=== PATIENT | female | born 1970 | race Caucasian/White ===

== ENCOUNTER 2017-05-03 20:04 | Emergency (ER) | payer BC ==
[~2017-05-03] VITALS: Ht 167.6 cm; Wt 104.3 kg
--- NOTE | 2017-05-03 20:51 | PHYS DOC ---
Past Medical History Past Medical History: High Cholesterol, Hypertension Past Surgical History: Tubal ligation Additional Past Surgical Histo: ovary removal, bladder lift Alcohol Use: None Drug Use: None Adult General Chief Complaint Chief Complaint: HYPERTENSION HPI HPI Patient is a 46 year old female who comes from home to the emergency department with the concern that her blood pressure was elevated at about 220/ 120. Patient states that she was just started yesterday on antihypertensives by her PCP, Yaz Tan, after her blood pressure had been running high. She thinks yesterday in the office it was 159/95. She took her first dose of lisinopril and cholesterol medicine last night at about 7 PM, today her blood pressure was okay when she checked it this morning. After work, she fixed dinner and ate something for dinner and then took her lisinopril and cholesterol medicine. Shortly after taking the medicines she began to not feel well. Her mouth felt dry. She felt like her throat was closing and she was having trouble swallowing. She had nausea. She was lightheaded. Her left arm had a band like tightness and pain from her elbow distally. She went and sat down on the couch, she checked her blood pressure and it was elevated. Her son checked his blood pressure with the same cuff and it was normal. Her blood pressure remained elevated so she came to the hospital. The patient did not have chest pain. The patient denies any swelling of her lips or tongue. She doesn't believe she's ever had an episode like this before. Review of Systems Review of Systems Constitutional: Denies fever or chills [] Eyes: Denies change in visual acuity, redness, or eye pain [] HENT: Denies nasal congestion or sore throat [] Respiratory: Denies cough or shortness of breath [] Cardiovascular: Denies chest pain GI: Nausea without vomiting : Denies dysuria or hematuria [] Musculoskeletal: Denies back pain or joint pain [] Integument: Denies rash or skin lesions [] Neurologic: Denies headache, focal weakness or sensory changes [] Allergies Allergies Allergies Coded Allergies Type Severity Reaction Last Updated Verified No Known Drug Allergies 05/03/17 No Physical Exam Physical Exam Constitutional: Well developed, well nourished, no acute distress, non-toxic appearance. Talking on her phone when I entered the room, alert, mentating normally. HENT: Normocephalic, atraumatic, bilateral external ears normal, nose normal. [] Eyes: conjunctiva normal, no discharge. [] Neck: Normal range of motion, no stridor. [] Cardiovascular:Heart rate regular rhythm, no murmur [] Lungs & Thorax: Bilateral breath sounds clear to auscultation [] Skin: Warm, dry, no erythema, no rash. [] Extremities: No tenderness, no cyanosis, no clubbing, ROM intact, no edema. [] Neurologic: Alert and oriented X 3, normal motor function, normal sensory function, no focal deficits noted. [] Current Patient Data Vital Signs Vital Signs Date Time Temp Pulse Resp B/P (MAP) Pulse Ox O2 Delivery O2 Flow Rate FiO2 05/03/17 21:03 70 16 161/77 (105) 100 Room Air 05/03/17 20:10 98.1 98.1 EKG EKG 12-lead EKG read by me. Sinus rhythm. Heart rate 72. There are no acute ST or T wave changes indicative of ischemia or infarction. No STEMI. 2015 [] Radiology/Procedures Radiology/Procedures [] Course & Med Decision Making Course & Med Decision Making Pertinent Labs and Imaging studies reviewed. (See chart for details) Initial blood pressure reading by the automated cuff was 219/108. I requested that ED nursing staff repeat her blood pressure manually and it was 158/82. Patient remained stable in the emergency department and felt better. I discussed with the patient that I don't know what happened with her blood pressure readings in her symptoms but I do not find any indication of anything serious. I encouraged her to continue taking her blood pressure and cholesterol medicine as prescribed and follow up with her PCP. She remained stable with no concerning signs or symptoms while in the emergency department. [] Dragon Disclaimer Dragon Disclaimer This electronic medical record was generated, in whole or in part, using a voice recognition dictation system. Departure Departure Impression: Primary Impression: Elevated blood pressure reading Disposition: HOME, SELF-CARE Condition: IMPROVED Patient Instructions: Hypertension, [id number] Additional Instructions: Be sure you take your lisinopril at the same time every day. Take cholesterol medicine at bedtime. Continue to work on losing weight, low salt diet. Continue to keep a log of your blood pressure readings for your primary care provider. Lisinopril may take a week to lower your blood pressure is much as it will, follow-up with your primary care. DUSTIN MALDONADO MD May 03, 2017 20:51
[2017-05-03 21:03] VITALS: BP 161/77
--- NOTE | 2017-05-04 07:22 | EKG ---
[facility] [address] [place] [address] Test Date: 2017-05-03 Test Time: 20:15:22 Pat Name: JAKE HUGHES Department: Room: Gender: F [employer]: : 1970 Requested By: DUSTIN MALDONADO Order Number: [id number] Reading MD: Nadine Wilks Measurements Intervals [place] Rate: 72 P: 27 [place]: 162 QRS: 59 QRSD: 92 T: 80 QT: 380 QTc: 422 Interpretive Statements SINUS RHYTHM NORMAL ECG RI6.01 No previous ECG available for comparison Electronically Signed On 05-06-2017 13:59:14 CDT by Nadine Wilks
== END 2017-05-03 21:03 | disposition home or self-care (01) ==
LOC: ER 20:04
DX: I10 Essential (primary) hypertension (principal); R42 Dizziness and giddiness; R11.0 Nausea; R13.10 Dysphagia, unspecified; E78.00 Pure hypercholesterolemia, unspecified; Z98.51 Tubal ligation status
CPT/HCPCS: 93005; 99284-25

== ENCOUNTER 2017-07-14 10:46 | Emergency (ER) | payer BC ==
--- NOTE | 2017-07-14 11:21 | PHYS DOC ---
Past Medical History Past Medical History: High Cholesterol, Hypertension Past Surgical History: Tubal ligation Additional Past Surgical Histo: ovary removal, bladder lift,BOTH KNEES Alcohol Use: None Drug Use: None Adult General Chief Complaint Chief Complaint: HEADACHE HPI HPI Patient is a 47 year old female who presents with headache. She states her headache started Monday came on gradually it's in the frontal area and goes to the back of her skull and is a constant pressure sensation. She states she's felt nauseated but not vomited. She denies any nuchal rigidity or fevers. She does state it feels like sinus pressure that's causing her pain. She states she's never had a headache like this before. She was seen by her primary care physician this morning and stated since her blood pressure was 217/ 109 she was sent to the ER. Review of Systems Review of Systems Constitutional: Denies fever or chills [] Eyes: Denies change in visual acuity, redness, or eye pain [] HENT: Denies nasal congestion or sore throat [] Respiratory: Denies cough or shortness of breath [] Cardiovascular: No additional information not addressed in HPI [] GI: Denies abdominal pain, nausea, vomiting, bloody stools or diarrhea [] : Denies dysuria or hematuria [] Musculoskeletal: Denies back pain or joint pain [] Integument: Denies rash or skin lesions [] Neurologic: Denies headache, focal weakness or sensory changes [] Endocrine: Denies polyuria or polydipsia [] Current Medications Current Medications Current Medications Medications (Trade) Dose Ordered Sig/Santos Start Time Stop Time Status Last Admin Dose Admin Diphenhydramine HCl (Benadryl) 25 mg 1X ONCE 07/14/17 12:00 07/14/17 12:01 DC 07/14/17 12:35 25 MG Promethazine HCl 12.5 mg/Sodium Chloride 50.5 ml @ 151.5 mls/ hr PRN Q6HRS PRN 07/14/17 12:00 07/14/17 12:34 151.5 MLS/HR Allergies Allergies Allergies Coded Allergies Type Severity Reaction Last Updated Verified No Known Drug Allergies 05/03/17 No Physical Exam Physical Exam Constitutional: Well developed, well nourished, no acute distress, non-toxic appearance. [] HENT: Normocephalic, atraumatic, bilateral external ears normal, oropharynx moist, no oral exudates, nose normal. [] Eyes: PERRLA, EOMI, conjunctiva normal, no discharge. [] Neck: Normal range of motion, no tenderness, supple, no stridor. [] Cardiovascular:Heart rate regular rhythm, no murmur [] Lungs & Thorax: Bilateral breath sounds clear to auscultation [] Abdomen: Bowel sounds normal, soft, no tenderness, no masses, no pulsatile masses. [] Skin: Warm, dry, no erythema, no rash. [] Back: No tenderness, no CVA tenderness. [] Extremities: No tenderness, no cyanosis, no clubbing, ROM intact, no edema. [] Neurologic: Alert and oriented X 3, normal motor function, normal sensory function, no focal deficits noted. [] Psychologic: Affect normal, judgement normal, mood normal. [] Current Patient Data Vital Signs Vital Signs Date Time Temp Pulse Resp B/P (MAP) Pulse Ox O2 Delivery O2 Flow Rate FiO2 07/14/17 12:51 55 123/58 (79) 97 Room Air 07/14/17 10:53 98.2 18 98.2 Lab Values Laboratory Tests Test 07/14/17 11:00 07/14/17 12:10 White Blood Count 9.0 x10^3/uL (4.0-11.0) Red Blood Count 4.58 x10^6/uL (3.50-5.40) Hemoglobin 13.8 g/dL (12.0-15.5) Hematocrit 40.2 % (36.0-47.0) Mean Corpuscular Volume 88 fL (79-100) Mean Corpuscular Hemoglobin 30 pg (25-35) Mean Corpuscular Hemoglobin Concent 34 g/dL (31-37) Red Cell Distribution Width 12.6 % (11.5-14.5) Platelet Count 311 x10^3/uL (140-400) Neutrophils (%) (Auto) 56 % (31-73) Lymphocytes (%) (Auto) 36 % (24-48) Monocytes (%) (Auto) 6 % (0-9) Eosinophils (%) (Auto) 2 % (0-3) Basophils (%) (Auto) 1 % (0-3) Neutrophils # (Auto) 5.0 x10^3uL (1.8-7.7) Lymphocytes # (Auto) 3.2 x10^3/uL (1.0-4.8) Monocytes # (Auto) 0.5 x10^3/uL (0.0-1.1) Eosinophils # (Auto) 0.2 x10^3/uL (0.0-0.7) Basophils # (Auto) 0.1 x10^3/uL (0.0-0.2) Sodium Level 141 mmol/L (136-145) Potassium Level 3.6 mmol/L (3.5-5.1) Chloride Level 102 mmol/L (98-107) Carbon Dioxide Level 29 mmol/L (21-32) Anion Gap 10 (6-14) Blood Urea Nitrogen 9 mg/dL (7-20) Creatinine 0.7 mg/dL (0.6-1.0) Estimated GFR (Cockcroft-Gault) 89.7 Glucose Level 99 mg/dL (70-99) Calcium Level 9.2 mg/dL (8.5-10.1) Magnesium Level 2.3 mg/dL (1.8-2.4) Total Bilirubin 0.4 mg/dL (0.2-1.0) Direct Bilirubin 0.1 mg/dL (0.0-0.2) Aspartate Amino Transferase (AST) 16 U/L (15-37) Alanine Aminotransferase (ALT) 28 U/L (14-59) Alkaline Phosphatase 79 U/L (46-116) Creatine Kinase 105 U/L (26-192) Creatine Kinase MB (Mass) 0.8 ng/mL (0.0-3.6) Creatine Kinase MB Relative Index 0.8 % (0-4) Troponin I Quantitative < 0.017 ng/mL (0.000-0.055) JZ-Xdt-C-Type Natriuretic Peptide 61 pg/mL (0-124) Total Protein 7.8 g/dL (6.4-8.2) Albumin 4.2 g/dL (3.4-5.0) Thyroid Stimulating Hormone (TSH) 1.624 uIU/mL (0.358-3.74) Urine Collection Type Unknown Urine Color Yellow Urine Clarity Clear Urine pH 7.0 Urine Specific Hay <=1.005 Urine Protein Negative mg/dL (NEG-TRACE) Urine Glucose (UA) Negative mg/dL (NEG) Urine Ketones (Stick) Negative mg/dL (NEG) Urine Blood Trace (NEG) Urine Nitrite Negative (NEG) Urine Bilirubin Negative (NEG) Urine Urobilinogen Dipstick 0.2 mg/dL (0.2 mg/dL) Urine Leukocyte Esterase Negative (NEG) Urine RBC 0 /HPF (0-2) Urine WBC Occ /HPF (0-4) Urine Squamous Epithelial Cells Many /LPF Urine Bacteria Few /HPF (0-FEW) Urine Opiates Screen Neg (NEG) Urine Methadone Screen Neg (NEG) Urine Barbiturates Neg (NEG) Urine Phencyclidine Screen Neg (NEG) Urine Amphetamine/Methamphetamine Neg (NEG) Urine Benzodiazepines Screen Neg (NEG) Urine Cocaine Screen Neg (NEG) Urine Cannabinoids Screen Neg (NEG) Urine Ethyl Alcohol Neg (NEG) Laboratory Tests 07/14/17 11:00 Laboratory Tests 07/14/17 11:00 EKG EKG EKG shows sinus rhythm 3-[address]ations or T-wave inversions, normal axis, QTC 414 ms, as interpreted by me. Radiology/Procedures Radiology/Procedures [facility] [address] [place] [address] IMAGING REPORT Signed PATIENT: JAKE HUGHES ACCOUNT: [id number] : 1970 LOCATION: ER AGE: 47 SEX: F EXAM STATUS: REG ER ORD. PHYSICIAN: CRISTIAN PIERRE MD REASON: new headache PROCEDURE: CT HEAD WO CONTRAST CT head without contrast 07/14/2017 at 1217 hours Indication: New headache. Comparison: None available Technique: Multiple axial CT images of the head were obtained without intravenous contrast. Findings: Ventricles, sulci and basal cisterns are normal for patient's age. There are is no loss of the marin-white matter differentiation. There is no mass, mass effect or midline shift. There is no hydrocephalus. There is no acute intracranial hemorrhage. Visualized portions of the orbits are normal. Paranasal sinuses and mastoid air cells are well aerated. There is a 28 x 21 mm probably calcified subcutaneous mass in the occipital scalp. There is a similar-appearing subcutaneous nodule which is calcified measuring 7 mm in the left parietal scalp. Impression: 1. No acute intracranial hemorrhage. 2. Partly calcified subcutaneous nodule measuring up to 28 x 21 mm in the occipital scalp appear to represent benign etiology. PQRS Compliance Statement: One or more of the following individualized dose reduction techniques were utilized for this examination: 1. Automated exposure control 2. Adjustment of the mA and/or kV according to patient size 3. Use of iterative reconstruction technique DICTATED and SIGNED BY: KRYSTIAN RODRIGUES MD DATE: 07/14/17 1226 CC: CRISTIAN PIERRE MD; MEHDI NOLAN ~ [facility] [address] [place] [address] IMAGING REPORT Signed PATIENT: JAKE HUGHES ACCOUNT: [id number] : 1970 LOCATION: ER AGE: 47 SEX: F EXAM STATUS: REG ER ORD. PHYSICIAN: CRISTIAN PIERRE MD REASON: htn PROCEDURE: PORTABLE CHEST 1V Chest radiograph 07/14/2017 1:21 PM Indication: Hypertension, headache Comparison: None available Technique: Single portable upright frontal view of the chest is provided. Findings: Cardiomediastinal silhouette is enlarged within normal limits. No pleural effusions, pulmonary vascular congestion or pneumothorax. The lungs are clear. Osseous structures are normal. Impression: Enlarged cardiomediastinal silhouette without acute infiltrate DICTATED and SIGNED BY: KRYSTIAN RODRIGUES MD DATE: 07/14/17 1234 CC: CRISTIAN PIERRE MD; MEHDI NOLAN ~ Impressions: Headache hypertension Course & Med Decision Making Course & Med Decision Making Pertinent Labs and Imaging studies reviewed. (See chart for details) Her headache improved with Phenergan and Benadryl. Her blood pressure improved to systolic 118. She's being discharged home. She is to take Benadryl and Phenergan as needed. She is also being discharged with Augmentin 875 twice a day for the next 10 days for sinus/left sided otitis. She can also take Anna or Claritin [id number] if she chooses not to take Benadryl. Return precautions given for worsening headache, fevers, neck stiffness or other concerns return back to ER. She is to follow-up with her primary care physician regarding her headache and elevated blood pressure. I suspect her blood pressure is normal now secondary to pain control. Dragon Disclaimer Dragon Disclaimer This electronic medical record was generated, in whole or in part, using a voice recognition dictation system. Departure Departure Impression: Primary Impression: Otitis media Disposition: 01 HOME, SELF-CARE Condition: STABLE Referrals: UNKNOWN PCP NAME (PCP) Patient Instructions: Otitis Media, Adult, [id number] Additional Instructions: Your CAT scan did not show any acute abnormality's. You being discharged home. Your headache could be secondary to an ear infection on the left side. Your being discharged with antibiotics for the next 10 days. You can take Phenergan and Benadryl as directed for your symptoms. You can purchase Benadryl over-the- counter. He is follow the instructions on the bottle. If Benadryl makes her too sleepy and always substituted and go with Anna or Claritin that you can purchase [id number]. Return the ER if you have severe pain, fevers, neck stiffness, or other concerns. You should follow-up to primary care physician within the next week regarding your blood pressure. Scripts Promethazine Hcl (PROMETHAZINE HCL) 25 Mg Tablet 1 TAB PO PRN Q6HRS Y for NAUSEA, #20 TAB Prov: CRISTIAN PIERRE MD 07/14/17 Amoxicillin/Potassium Clav (AUGMENTIN 875-125 TABLET) 1 Each Tablet 1 TAB PO BID, #20 TAB Prov: CRISTIAN PIERRE MD 07/14/17 Problem Qualifiers Primary Impression: Otitis media Otitis media type: suppurative Chronicity: acute Laterality: left Recurrence: not specified as recurrent Spontaneous tympanic membrane rupture: without spontaneous rupture Qualified Codes: H66.002 - Acute suppurative otitis media without spontaneous rupture of ear drum, left ear CRISTIAN PIERRE MD Jul 14, 2017 11:21
[2017-07-14 11:32] LABS: BASO # 0.1 x10^3/uL (0.0-0.2); BASO % 1 % (0-3); EOS % 2 % (0-3); HEMATOCRIT 40.2 % (36.0-47.0); HEMOGLOBIN 13.8 g/dL (12.0-15.5); LYMPH # 3.2 x10^3/uL (1.0-4.8); LYMPH % 36 % (24-48); MEAN CORPUSCULAR HEMOGLOBIN 30 pg (25-35); MEAN CORPUSCULAR HGB CONC 34 g/dL (31-37); MEAN CORPUSCULAR VOLUME 88 fL (79-100); MONO % 6 % (0-9); NEUT % 56 % (31-73); PLATELET COUNT 311 x10^3/uL (140-400); RED BLOOD COUNT 4.58 x10^6/uL (3.50-5.40); RED CELL DISTRIBUTION WIDTH 12.6 % (11.5-14.5)
[2017-07-14 11:54] LABS: CALCIUM 9.2 mg/dL (8.5-10.1); CREATININE 0.7 mg/dL (0.6-1.0); GFR 89.7; POTASSIUM 3.6 mmol/L (3.5-5.1)
--- NOTE | 2017-07-14 11:54 | EKG ---
[facility] [address] [place] [address] Test Date: 2017-07-14 Test Time: 11:31:33 Pat Name: JAKE HUGHES Department: Room: Gender: F [employer]: : 1970 Requested By: CRISTIAN PIERRE Order Number: [id number] Reading MD: Darryl Sams Measurements Intervals [place] Rate: 60 P: 24 [place]: 158 QRS: 47 QRSD: 88 T: 47 QT: 414 QTc: 414 Interpretive Statements SINUS RHYTHM Electronically Signed On 07-14-2017 15:38:40 CDT by Darryl Sams
[2017-07-14] MEDS ORDERED: diphenhydrAMINE 50 MG/ML VIAL IVP ONE (12:00)
[2017-07-14] MEDS ORDERED: PROMETHAZINE 12.5 MG in IV NORMAL SALINE 50ML 50 ML IV PRN (12:00)
[2017-07-14 12:01] LABS: ALBUMIN 4.2 g/dL (3.4-5.0); DIRECT BILIRUBIN 0.1 mg/dL (0.0-0.2); MAGNESIUM 2.3 mg/dL (1.8-2.4); TOTAL BILIRUBIN 0.4 mg/dL (0.2-1.0); TOTAL PROTEIN 7.8 g/dL (6.4-8.2)
[2017-07-14 12:07] LABS: CKMB MASS 0.8 ng/mL (0.0-3.6)
[2017-07-14 12:32] LABS: BARBITURATES NEG (NEG); BENZODIAZEPINES NEG (NEG); CANNABINOIDS NEG (NEG); COCAINE NEG (NEG); METHADONE NEG (NEG); OPIATES NEG (NEG); PHENCYCLIDINE NEG (NEG)
--- NOTE | 2017-07-14 12:33 | RAD ---
CT head without contrast 07/14/2017 at 1217 hours Indication: New headache. Comparison: None available Technique: Multiple axial CT images of the head were obtained without intravenous contrast. Findings: Ventricles, sulci and basal cisterns are normal for patient's age. There are is no loss of the marin-white matter differentiation. There is no mass, mass effect or midline shift. There is no hydrocephalus. There is no acute intracranial hemorrhage. Visualized portions of the orbits are normal. Paranasal sinuses and mastoid air cells are well aerated. There is a 28 x 21 mm probably calcified subcutaneous mass in the occipital scalp. There is a similar-appearing subcutaneous nodule which is calcified measuring 7 mm in the left parietal scalp. Impression: 1. No acute intracranial hemorrhage. 2. Partly calcified subcutaneous nodule measuring up to 28 x 21 mm in the occipital scalp appear to represent benign etiology. PQRS Compliance Statement: One or more of the following individualized dose reduction techniques were utilized for this examination: 1. Automated exposure control 2. Adjustment of the mA and/or kV according to patient size 3. Use of iterative reconstruction technique
[2017-07-14 12:51] VITALS: BP 123/58
--- NOTE | 2017-07-14 12:52 | RAD ---
Chest radiograph 07/14/2017 1:21 PM Indication: Hypertension, headache Comparison: None available Technique: Single portable upright frontal view of the chest is provided. Findings: Cardiomediastinal silhouette is enlarged within normal limits. No pleural effusions, pulmonary vascular congestion or pneumothorax. The lungs are clear. Osseous structures are normal. Impression: Enlarged cardiomediastinal silhouette without acute infiltrate
[2017-07-14 13:15] LABS: BILIRUBIN,URINE NEGATIVE (NEG); GLUCOSE,URINE NEGATIVE (NEG); NITRITE,URINE NEGATIVE (NEG); PROTEIN,URINE NEGATIVE (NEG-TRACE); UROBILINOGEN,URINE 0.2 mg/dL (0.2 mg/dL)
[2017-07-14 13:27] LABS: BACTERIA,URINE FEW /HPF (0-FEW); RBC,URINE 0 /HPF (0-2); SQUAMOUS EPITHELIAL CELL,UR MANY /LPF; WBC,URINE OCC /HPF (0-4)
[2017-07-14] MEDS ORDERED: PROM25TA10 PO (13:59)
[2017-07-14] MEDS ORDERED: AMOX1TAB61 PO (13:59)
== END 2017-07-14 14:15 | disposition home or self-care (01) ==
LOC: ER 10:46
DX: H66.002 Acute suppurative otitis media without spontaneous rupture of ear drum, left ear (principal); R51 Headache; R11.0 Nausea; I10 Essential (primary) hypertension; E78.00 Pure hypercholesterolemia, unspecified
CPT/HCPCS: 36415; 70450; 71010; 80048; 80076; 80307; 81001; 82553; 83735; 83880; 84443; 84484; 85025; 93005; 96365; 96375; 99285; J1200; J2550; G0479

== ENCOUNTER → 2017-12-20 | Outpatient (CLI) | payer BC | END | disposition home or self-care (01) | LOC: ECHO 12:50 | DX: I49.9 Cardiac arrhythmia, unspecified (principal); R01.1 Cardiac murmur, unspecified; R06.02 Shortness of breath | CPT/HCPCS: 93017; 93350 ==